=== PATIENT | female | born 1975 | race Caucasian/White ===

== ENCOUNTER 2018-04-29 12:38 | Emergency (ER) | payer OTHER ==
[~2018-04-29] VITALS: Ht 167.6 cm; Wt 102.5 kg
[~2018-04-29 12:38] MED LIST: BACTRIM DS TAB1 EACH PO; NOHOMEMEDICATIONS; TRIAMCINOLONE A80 G2 TOP; ULTRAM 50MG TAB50 MG PO
[2018-04-29] MEDS ORDERED: ACTICIN 5% CREA60 G1 TOP (13:09)
[2018-04-29] MEDS ORDERED: KEFLEX500 M1 PO (13:09)
[2018-04-29] MEDS ORDERED: PREDNISONE 5 MG5 MG PO (13:09)
[2018-04-29 13:22] VITALS: BP 107/64
== END 2018-04-29 13:22 | disposition home or self-care (01) ==
LOC: M.ERS 12:38
DX: R21 Rash and other nonspecific skin eruption (principal); E11.9 Type 2 diabetes mellitus without complications; Z88.0 Allergy status to penicillin; Z88.6 Allergy status to analgesic agent; Z90.49 Acquired absence of other specified parts of digestive tract; Z90.710 Acquired absence of both cervix and uterus